=== PATIENT | female | born 1980 | race African-American/Black ===

== ENCOUNTER 2018-12-19 15:13 | Emergency (ER) | payer BC ==
[~2018-12-19] VITALS: Ht 157.5 cm; Wt 90.7 kg
[~2018-12-19 15:13] MED LIST: ACYCLOVIR 400400 MG PO; AMOXICILLIN 50500 M1 PO; APAP/CODEINE ELI5 M1 OR; ATIVAN0.5 MG PO; AZITHROMYCIN 2250 MG PO; BENZTROPINE MESY2 MG PO; BUSPIRONE HCL10 MG PO; CELEXA20 MG PO; CLARITIN10 MG PO; DECONGESTANT NA15 ML NS; DOXYCYCLINE 10100 M1 PO; FLONASE 0.05%50 MCG NASAL; FLONASE16 GM INH; HYDROCODONE-APA10 ML PO; IBUPROFEN 600600 M1 PO; NAPROSYN500 MG PO; NORCO 5-325 TA1 EACH PO; PHENERGAN VC-C120 ML PO; PHENERGAN-CODE120 ML PO; PREDNISONE 20 M20 M1 PO; PREDNISONE 20 M20 MG PO; PROAIR HFA8.5 GM IH; PROMETHAZINE-C120 ML PO; PROVENTIL; PROVENTIL HFA6.7 G1 INH; RISPERDAL2 MG PO; ROBAFEN AC SYR120 ML PO; VENTOLIN17 GM INH; ZPAK PO
[2018-12-19] MEDS ORDERED: METFORMIN HCL500 MG PO (15:30)
[2018-12-19] MEDS ORDERED: DEPAKOTE500 MG PO (15:31)
[2018-12-19] MEDS ORDERED: DESYREL150 MG PO (15:31)
[2018-12-19] MEDS ORDERED: ZOLOFT50 MG PO (15:32)
[2018-12-19] MEDS ORDERED: XANAX 0.5 MG0.5 MG PO (15:33)
[2018-12-19] MEDS ORDERED: NAPROSYN500 MG PO (17:15)
[2018-12-19] MEDS ORDERED: DOXYCYCLINE 10100 MG PO (17:15)
[2018-12-19] MEDS ORDERED: NEURONTIN 300300 M1 PO (17:15)
[2018-12-19] MEDS ORDERED: GLUCOPHAGE XR500 MG PO (17:15)
[2018-12-19 18:22] VITALS: BP 144/87
== END 2018-12-19 17:30 | disposition home or self-care (01) ==
LOC: ER 15:13
DX: G62.9 Polyneuropathy, unspecified (principal); J34.89 Other specified disorders of nose and nasal sinuses; J45.909 Unspecified asthma, uncomplicated; F31.9 Bipolar disorder, unspecified; Z87.891 Personal history of nicotine dependence; Z88.0 Allergy status to penicillin; Z88.8 Allergy status to other drugs, medicaments and biological substances